=== PATIENT | female | born 1955 | race Caucasian/White ===

== ENCOUNTER 2017-05-18 10:19 | Emergency (ER) | payer BC, OTHER ==
[~2017-05-18] VITALS: Ht 160 cm; Wt 74.8 kg
[2017-05-18] MEDS ORDERED: TETANUS/DIPHTHERIA TOX ADULT 0.5 ML SYR IM ONE (10:30)
[2017-05-18] MEDS ORDERED: HYDROCODONE/APAP 7.5MG-325MG 1 EA TAB PO PRN (10:30)
--- NOTE | 2017-05-18 11:26 | Diagnostic Imaging Report ---
Left first toe - 4 views HISTORY: Pain. COMPARISON: None available. FINDINGS: Bones: Comminuted fracture of the distal tuft of the left first digit. No expansile lytic or sclerotic lesion. Joints: The joint spaces are well-maintained. No dislocation. Soft tissues: Soft tissue swelling of the left first digit. IMPRESSION: Crush injury of the distal left first digit. Signed by: Dr. Bebeto Lowery M.D. on 05/18/2017 11:23 AM
[2017-05-18] MEDS ORDERED: BACITRACIN ZINC 0.9GM TP ONE (11:30)
[2017-05-18 11:53] VITALS: BP 158/79
== END 2017-05-18 12:02 | disposition home or self-care (01) ==
LOC: ER 10:47
DX: S90.212A Contusion of left great toe with damage to nail, initial encounter (principal); W20.8XXA Other cause of strike by thrown, projected or falling object, initial encounter; Y93.G1 Activity, food preparation and clean up; Y92.000 Kitchen of unspecified non-institutional (private) residence as the place of occurrence of the external cause; I10 Essential (primary) hypertension; E11.9 Type 2 diabetes mellitus without complications
CPT/HCPCS: 90714; 99283

== ENCOUNTER 2017-12-10 16:47 | Observation (INO) | payer OTHER ==
[~2017-12-10] VITALS: Ht 160 cm; Wt 74.8 kg
[2017-12-10 17:52] LABS: BASOPHILS % 0.4 % (0.0-1.0); EOSINOPHILS # (AUTO) 0.2 (0.0-0.4); EOSINOPHILS % 2.4 % (0.0-6.0); HEMATOCRIT 37.9 % (34.2-44.1); HEMOGLOBIN 12.8 g/dL (12.0-16.0); LYMPHOCYTES % 12.6 % (18.0-39.1); MEAN CORPUSCULAR HEMOGLOBIN 30.2 pg (28-32); MEAN CORPUSCULAR HGB CONC 33.8 g/dL (31-35); MEAN CORPUSCULAR VOLUME 89.4 fL (81-99); MONOCYTES # (AUTO) 0.7 (0.2-0.8); MONOCYTES % 8.3 % (4.4-11.3); NEUTROPHILS # (AUTO) 6.3 (2.1-6.9); NEUTROPHILS % 75.9 % (38.7-80.0); PLATELET COUNT 246 x10e3/uL (140-360); RED BLOOD COUNT 4.24 x10e6/uL (3.6-5.1); RED CELL DISTRIBUTION WIDTH 12.9 % (11.7-14.4)
--- NOTE | 2017-12-10 17:52 | Diagnostic Imaging Report ---
PROCEDURE: A single AP view of the chest. COMPARISON: 08/04/2014 INDICATIONS: BRIEF MOMENT OF PARALYSIS FINDINGS: Lines/tubes: None. Lungs: The lungs are well inflated and clear. There is no evidence of pneumonia or pulmonary edema. Pleura: There is no pleural effusion or pneumothorax. Heart and mediastinum: The heart and the mediastinum are unremarkable. Bones: No acute bony abnormality. IMPRESSION: 1. No acute cardiopulmonary disease. Dictated by: Marbin Barnes M.D. on 12/10/2017 at 17:58 Electronically approved by: Marbin Barnes M.D. on 12/10/2017 at 17:58
[2017-12-10 18:02] LABS: INR 1.06
[2017-12-10 18:10] LABS: ALBUMIN 4.3 g/dL (3.5-5.0); ANION GAP 15.3 mmol/L (8-16); CALCIUM 10.1 mg/dL (8.4-10.2); CREATININE, SERUM 1.05 mg/dL (0.57-1.11); POTASSIUM 4.3 mmol/L (3.5-5.1)
--- NOTE | 2017-12-10 18:18 | Diagnostic Imaging Report ---
Head CT without contrast History: 62-year-old female with brief episode of confusion. Forgot where she was. Currently no symptoms. Comparison studies: None Technique: Axial images were obtained from the skull base to the vertex. Coronal and sagittal reconstructions obtained from the axial data. Dose modulation, iterative reconstruction, and/or weight based adjustment of the mA/kV was utilized to reduce the radiation dose to as low as reasonably achievable. Findings: Scalp/skull: No abnormalities. No fractures, blastic or lytic lesions. Extra-axial spaces: No masses. No fluid collections. Brain sulci: Mildly prominent. Ventricles: Normal in size and configuration. No hydrocephalus. Parenchyma: No abnormal densities. Hypodensity in the bailey is likely secondary to streak artifact. No masses, hemorrhage, acute or chronic cortical vascular insults. Sellar/suprasellar region: No abnormalities Craniocervical junction: Patent foramen magnum. No Chiari one malformation. Incidental: Mild atherosclerotic plaque in the carotid siphons. IMPRESSION: No acute abnormalities. Mild generalized cerebral volume loss. A preliminary report was given by Neuroradiology fellow Dr. Shultz at 6.00pm on 12/10/2017. Signed by: Dr. Nikkie Velasco M.D. on 12/10/2017 7:53 PM
[2017-12-10 18:30] LABS: CREATINE KINASE MB 1.4 ng/mL (0-5.0); THYROID STIMULATING HORMONE 1.518 uIU/mL (0.350-4.940)
[2017-12-10] MEDS ORDERED: DEXTROSE 50% SYRINGE 50 ML IV PRN (18:30)
[2017-12-10] MEDS ORDERED: CARVEDILOL6.25 MG PO (18:48)
[2017-12-10] MEDS ORDERED: AMLODIPINE BESY10 MG PO (18:48)
[2017-12-10] MEDS ORDERED: NORTRIPTYLINE H50 MG PO (18:48)
[2017-12-10] MEDS ORDERED: LOVASTATIN20 MG PO (18:48)
[2017-12-10] MEDS ORDERED: LISINOPRIL10 MG PO (18:48)
[2017-12-10] MEDS ORDERED: TOUJEO SQ (18:48)
[2017-12-10] MEDS ORDERED: METFORMIN HCL500 MG PO (18:48)
--- NOTE | 2017-12-10 19:00 | History and Physical ---
CHIEF COMPLAINT: Transient loss of memory and dizziness for 3 minutes while the patient was shopping. HISTORY OF PRESENT ILLNESS: This is a 62-year-old female with past medical history of hypertension, hyperlipidemia, atherosclerotic heart disease, diabetes mellitus. She was in her usual state of health until she went shopping at [employer] with her daughter. Daughter stated that the patient was very confused for 3 minutes with dizziness. No chest pain, but has some heartburn. No cough, no fever. No diarrhea, no constipation. No abdominal pain. No nausea or vomiting. No seizures. No leg pain. No leg swelling. No focal weakness. No drooling from mouth. No diplopia. No blurring of vision. No hematemesis. No melena. No backache. No burning on urination. PAST MEDICAL HISTORY: 1. Diabetes mellitus. 2. Hypertension. 3. Hyperlipidemia. 4. Atherosclerotic heart disease. 5. GERD. PAST SURGICAL HISTORY: Not available. SOCIAL HISTORY: The patient lives with her . The patient is . HABITS: Denied. Quit smoking many, many years ago. Denies alcohol use. Denies illicit drug use. MEDICATIONS: List attached. REVIEW OF SYSTEMS GENERAL: Denies fatigue and weakness. HEENT: No diplopia. No blurring of vision. CARDIOPULMONARY: No chest pain. No shortness of breath. No cough. ALIMENTARY SYSTEM: No nausea, no vomiting. No diarrhea and no constipation. No hematemesis. No melena. GENITOURINARY: Denies dysuria or hematuria. MUSCULOSKELETAL: No joint pains. CENTRAL NERVOUS SYSTEM: No focal weakness. PHYSICAL EXAMINATION GENERAL: A 62-year-old female, who is alert, oriented times 3 now. . VITAL SIGNS: Temperature 96, respiratory rate 18, blood pressure 146/84. HEENT: Atraumatic and normocephalic. Pupils are bilaterally equal to light. Extraocular movements are intact. NECK: Supple. No JVD, no carotid bruit. LUNGS: Clear to auscultation and percussion bilaterally. HEART: S1 and S2. Regular rate and rhythm. No S3, S4 or murmur. ABDOMEN: Soft, nontender. No guarding, no rigidity. EXTREMITIES: No edema. Peripheral pulses +1. ROTARY RIG ENGINE OPERATOR: Grossly nonfocal. CT of the head negative. Chest x-ray normal. EKG normal sinus rhythm at 96 per minute. BMP pending. CBC normal. PT and PTT normal. ASSESSMENT: 1. Possible transient ischemic attack or cerebrovascular accident. 2. Atherosclerotic heart disease. 3. Diabetes mellitus. 4. Hypertension. 5. Hyperlipidemia. 6. History of gastroesophageal reflux disease. PLAN: Aspirin 81 mg p.o. daily. Neuro consult with Dr. Stein. Cardiology consult with Dr. Chun. Discussed with the patient and family her condition and prognosis. Carotid Doppler and echo. MRI of brain deferred to neurologist. Will do lab in the morning, fasting lipid panel, hemoglobin A1c. Job#: [id number]
[2017-12-10 19:10] LABS: BILIRUBIN,URINE NEGATIVE (NEGATIVE); CLARITY,URINE CLOUDY (CLEAR); COLOR,URINE YELLOW (YELLOW); KETONES,URINE NEGATIVE (NEGATIVE); LEUKOCYTE ESTERASE ,URINE 2+ (NEGATIVE); NITRITE,URINE NEGATIVE (NEGATIVE); PROTEIN,URINE DIPSTICK TRACE (NEGATIVE); URINE UROBILINOGEN 0.2 mg/dL (0.2 - 1)
[2017-12-10 19:13] LABS: AMPHETAMINES SCREEN,URINE NEGATIVE (NEGATIVE); BENZODIAZEPINES SCREEN,URINE NEGATIVE (NEGATIVE); PHENCYCLIDINE SCREEN,URINE NEGATIVE (NEGATIVE)
[2017-12-10 19:18] LABS: BACTERIA,URINE MANY /HPF; RBC,URINE 0-5 /HPF (0-5)
[2017-12-10] MEDS: CEFTRIAXONE SOD 1 GM VIAL IV SCH (20:06)
[2017-12-10 20:30] VITALS: BP 174/80
[2017-12-10 20:55] VITALS: BP 174/80
[2017-12-10] MEDS: INSULIN LISPRO 100 UNIT/1 ML 3ML VIAL SQ SCH (20:55)
[2017-12-10] MEDS ORDERED: NON-FORMULARY MEDICATION (Nortriptyline Hcl 50 MG) PO SCH (21:45)
[2017-12-10] MEDS: NORTRIPTYLINE HCL 25 MG CAP PO SCH (21:57)
[2017-12-11] VITALS (8 sets, daily range): BP systolic 114–151; BP diastolic 53–76
[2017-12-11 06:24] LABS: ALANINE AMINOTRANSFERASE 19 IU/L (0-55); ALBUMIN 3.7 g/dL (3.5-5.0); ALKALINE PHOSPHATASE 103 IU/L (40-150); ANION GAP 15.4 mmol/L (8-16); BLOOD UREA NITROGEN 13 mg/dL (7-26); BUN/CREATININE RATIO 15 (6-25); CALCIUM 9.4 mg/dL (8.4-10.2); CARBON DIOXIDE 25 mmol/L (22-29); CHLORIDE 106 mmol/L (98-107); CHOL/HDL RATIO 3.4 (3.0-3.6); CHOLESTEROL 140 MD/DL (0-199); CREATININE, SERUM 0.86 mg/dL (0.57-1.11); EST GLOMERULAR FILTRATION RATE > 60 ML/MIN (60-); GLUCOSE 126 mg/dL (74-118); HDL CHOLESTEROL 41 MG/DL (40-60); LDL CHOLESTEROL 75 MG/DL (60-130); POTASSIUM 4.4 mmol/L (3.5-5.1); SODIUM 142 mmol/L (136-145); TRIGLYCERIDES 121 MG/DL (0-149)
[2017-12-11 06:46] LABS: FREE T4 (FREE THYROXINE) 1.02 ng/dL (0.9-1.8)
[2017-12-11] MEDS: PANTOPRAZOLE SOD 40 MG TABEC PO SCH (07:30)
[2017-12-11] MEDS: INSULIN LISPRO 100 UNIT/1 ML 3ML VIAL SQ SCH ×4 (07:30→20:34)
[2017-12-11] MEDS: METFORMIN HCL 500 MG TAB PO SCH ×2 (08:00→17:26)
[2017-12-11] MEDS ORDERED: ASPIRIN 325 MG TAB PO SCH (09:00)
[2017-12-11] MEDS ORDERED: NON-FORMULARY MEDICATION (Lovastatin 20 MG) PO SCH (09:00)
[2017-12-11] MEDS: ASPIRIN 81 MG CHEW TAB PO SCH (09:00)
--- NOTE | 2017-12-11 09:07 | Consultation ---
DATE OF CONSULTATION: December 10, 2017 CONSULTING PHYSICIAN: Dr. Jayden Dean REASON FOR CONSULTATION: TIA. HPI: This is a pleasant 62-year-old female that presented with altered mental status. According to the family and medical record, she was in the store at [facility] very confused and did not know where she was. She also stated it has been going on off and on, and the daughter brought her in for evaluation. She denied any chest pain, any palpitation, any fall, any dizziness or shortness of breath. PAST MEDICAL HISTORY: Hypertension, diabetes, hyperlipidemia, and diabetic neuropathy. PAST SURGICAL HISTORY: Cholecystectomy, tubal ligation, and tonsillectomy. FAMILY HISTORY: Positive for CAD. SOCIAL HISTORY: No smoking. No drinking. She lives at home with her . MEDICATIONS: See med list. ALLERGIES: SHE IS ALLERGIC TO IODINE AND MEPERIDINE. REVIEW OF THE SYSTEMS: Negative except those mentioned above. PHYSICAL EXAMINATION: VITAL SIGNS: Temperature 97, heart rate 93, blood pressure 118/53, respiration 18, oxygen saturation 95% on room air. GENERAL: She is awake, alert, and oriented x3. HEENT: Mucous membranes moist. NECK: Supple. LUNGS: Bilaterally clear to auscultation. CARDIOVASCULAR: S1 and S2 present. ABDOMEN: Soft. NEUROLOGICAL: Intact. She is alert and oriented x3. EXTREMITIES: Bilateral lower with no edema, but with discoloration. LABS: Sodium 142, potassium 4.4, chloride 106, CO2 25, BUN 13, creatinine 0.86, glucose 126. White blood cell 8.24, hemoglobin 12.8, hematocrit 37.9, platelet 246,000. PT 13.0, PTT 28.0, INR 1.06. IMPRESSION: 1. Altered mental status. 2. Hypertension. 3. Diabetes. 4. Hyperlipidemia. 5. Possible transient ischemic attack. 6. History of diabetic neuropathy. ASSESSMENT AND PLAN: 1. She is pending echocardiogram to assess the LV and the valve function. 2. Will go ahead and get bilateral carotid Doppler to rule out any occlusion. 3. Will check UA to rule out UTI. 4. She complained of numbness and no feeling to bilateral lower extremities, so will go ahead and get a bilateral arterial Doppler to rule out any occlusion. Will continue her home medications. Neurology is on board. Further cardiac workup pending clinical course. Thank you for this consultation. Dictated by: Kylie Meza NP Job#: [id number]
--- NOTE | 2017-12-11 13:34 | Diagnostic Imaging Report ---
EXAMINATION: MRI of the brain without contrast. HISTORY: Confusion, transit ischemic attack COMPARISON: Head CT on 12/10/2017 TECHNIQUE: Sagittal T2; axial DWI, T2, FLAIR, T1-IR, T2 gradient echo; coronal FLAIR. IMAGE QUALITY: Adequate. FINDINGS: Parenchyma: 1. A few scattered white matter T2 hyperintense foci, most likely nonspecific chronic microvascular ischemic changes. 2. No mass, hemorrhage, acute or chronic infarcts. Skull: Unremarkable. Vessels: Expected flow voids present in the major arteries and dural sinuses. Extra-axial spaces: No abnormal signal intensity or mass effect. Brain volume: Within normal limits for age. Ventricles: No hydrocephalus or displacement. Foramen magnum: Unremarkable. Sella: Unremarkable. Paranasal / mastoid sinuses: No significant inflammatory disease. IMPRESSION: 1. No acute infarcts. 2. Minimal chronic microvascular ischemic changes. Signed by: Dr. Miriam Bhardwaj M.D. on 12/11/2017 1:31 PM
[2017-12-11 15:41] LABS: CLARITY,URINE SL CLOUDY (CLEAR); COLOR,URINE YELLOW (YELLOW); LEUKOCYTE ESTERASE ,URINE TRACE (NEGATIVE); NITRITE,URINE NEGATIVE (NEGATIVE); PROTEIN,URINE DIPSTICK NEGATIVE (NEGATIVE)
[2017-12-11 15:42] LABS: BILIRUBIN,URINE NEGATIVE (NEGATIVE); KETONES,URINE NEGATIVE (NEGATIVE); URINE UROBILINOGEN 0.2 mg/dL (0.2 - 1)
[2017-12-11 15:52] LABS: BACTERIA,URINE MODERATE /HPF; EPITHELIAL CELLS,URINE FEW /LPF; RBC,URINE 0-5 /HPF (0-5); WBC,URINE (MAN) 21-50 /HPF (0-5)
[2017-12-11] MEDS: CEFTRIAXONE SOD 1 GM VIAL IV SCH (20:34)
[2017-12-11] MEDS: NORTRIPTYLINE HCL 25 MG CAP PO SCH (20:34)
[2017-12-11] MEDS ORDERED: SIMVASTATIN 20 MG TAB PO SCH (21:00)
[2017-12-12] VITALS: BP 125/59
--- NOTE | 2017-12-12 01:33 | Consultation ---
DATE OF CONSULTATION: December 11, 2017 NEUROLOGY CONSULT NOTE HISTORY OF PRESENT ILLNESS: Ms. Sylvester is a 62-year-old right hand dominant woman with past medical history significant for hypertension, hyperlipidemia, and diabetes mellitus type 2 complicated by peripheral neuropathy, admitted to [facility] on December 10, 2017, for symptoms suspicious for a transient ischemic attack. On the afternoon of admission, the patient was sitting in her car with her daughter, having recently exited [employer]. While in the car, the patient turned to her daughter and asked her, "where is [employer]?" Her daughter pointed over her shoulder, indicating the store behind them. Ms. Sylvester acknowledged her daughter's response, started the car, and drove away. This very brief episode of forgetfulness is the only symptom experienced by the patient. Ms. Sylvester did not report a visual field cut or other disturbance, dysarthria, aphasia, facial droop, hemiparesis, and hemihypesthesia, impairment of gait or balance, or dizziness. The patient does not report a headache associated with the above symptom. Ms. Sylvester proceeded to the emergency center at [facility] on the evening of December 10, 2017, at the encouragement of her children for further evaluation of her symptom. In the emergency center, the patient's neurological examination was nonfocal. A CT of the brain without contrast was performed, but did not show evidence of recent large territorial ischemia, hemorrhage, mass, or mass effect. Ms. Sylvester was admitted to the hospital under observation status for further evaluation and treatment. Ms. Sylvester does not report experiencing similar symptoms previously. REVIEW OF SYSTEMS: Confusion, numbness and tingling of the feet (chronic). Otherwise, a 12-point review of systems is negative. PAST MEDICAL HISTORY: Hypertension, hyperlipidemia, diabetes mellitus type 2, depression, and diabetic peripheral neuropathy. PAST SURGICAL HISTORY: Removal of a fallopian tube, tonsillectomy, cholecystectomy, oophorectomy, and nose surgery. PAST HOSPITALIZATIONS: Surgeries/procedures as listed, childbirth times 2. FAMILY MEDICAL HISTORY: The patient's paternal and maternal grandparents are . The medical histories of the paternal grandparents and maternal grandfather are unknown. Ms. Sylvester' maternal grandmother from coronary artery disease with a myocardial infarction. The patient's father is from lung cancer. Her mother is from coronary artery disease with a myocardial infarction. Ms. Sylvester had 4 siblings, 2 sisters and 2 brothers. One sister is alive and healthy. A second sister is alive, but has a history of a prior stroke. One brother is alive, but his medical history is unknown. The second brother is from coronary artery disease with a myocardial infarction. Ms. Sylvester has 2 children, a son and a daughter, both of whom are living. Her son reportedly has tachycardia of an unknown etiology. Her daughter has Crohn's disease. SOCIAL HISTORY: Ms. Sylvester is . She is a housewife. The patient does report a remote history of tobacco use, but quit smoking cigarettes 34 years ago. The patient does not report current or prior alcohol or recreational drug use. HOME MEDICATIONS: Please see the list available on the electronic medical record. ALLERGIES: DEMEROL. NO KNOWN FOOD ALLERGIES. NO KNOWN ALLERGIES TO LATEX. THE PATIENT DOES REPORT AN ALLERGY TO IODINE. PHYSICAL EXAMINATION VITAL SIGNS: Height 63 inches, weight 165 pounds, BMI 29.2 kg per meter squared. Blood pressure 114/58 mmHg, pulse 94 beats per minute, respiratory rate 18 breaths per minute, and oxygen saturation 95% on room air. GENERAL: The patient is awake and alert, does not appear distressed. Overweight. HEENT: Normocephalic, atraumatic. Pupils are equal, round, and reactive to light. NECK: Supple. No appreciable thyromegaly. No appreciable carotid bruits. CARDIOVASCULAR: S1 and S2, regular rate and rhythm. No murmurs, rubs, or gallops. RESPIRATORY: Clear to auscultation bilaterally. No wheezes, rhonchi, or rales. EXTREMITIES: The skin is warm and dry. No clubbing, cyanosis, or edema. The posterior tibial and dorsalis pedis pulses are 1+ and symmetric. SKIN: Thinning and hyperpigmentation of the skin over the feet and distal forelegs. NEUROLOGIC Memory/Attention: The patient is awake and alert, oriented to person, place, time, and situation. Cranial Nerves: Cranial nerve I: Not tested. Cranial nerve II, III, IV, and V: Pupils are equal and round, react briskly to light (from 4 mm to 2 mm). Extraocular movements intact. No nystagmus. Cranial nerve V: Sensation to light touch and pinprick is intact in the bilateral V1 through V3 distributions. Strength of the temporalis and masseter muscles is within normal limits. Cranial nerve VII: The face is symmetric as are all facial movements. Strength is within normal limits. Cranial nerve VIII: Hearing is intact to finger rub bilaterally. Cranial nerve IX, X: The soft palate elevates equally and symmetrically. Cranial nerve XI: Normal strength of the bilateral sternocleidomastoid and trapezius muscles. Cranial nerve XII: The tongue protrudes in midline and moves symmetrically from side to side. Strength: Bulk is normal. Strength is 5/5 in the bilateral deltoids, biceps, triceps, wrist flexors and extensors, finger flexors and extensors, intrinsic hand muscles, hip flexors, knee flexors and extensors, ankle dorsiflexion and plantar flexion, and intrinsic foot muscles. Tone is normal. DTRs: Deep tendon reflexes are 2+ and symmetric at the triceps, biceps, and brachioradialis. Deep tendon reflexes are 1+ and symmetric at patellae. Deep tendon reflexes are absent and symmetric at the Achilles. Plantar responses are flexor bilaterally. Sensation: Sensation is diminished to light touch and pinprick in a stocking distribution. Cerebellar: Szcfnl-amyd-hwnnik and heel-cain movements are intact without dysmetria or other impairment. Gait: Gait deferred. Speech: Spontaneous speech is normal without appreciable dysarthria or aphasia. Repetition is intact. Involuntary Movements: None. Pronator Drift: None. LABORATORY DATA: The patient's complete metabolic panel is unremarkable with the exception of an elevated serum glucose of 126. Total cholesterol 140, triglycerides 121, LDL cholesterol 75, HDL cholesterol 41. Hemoglobin A1c 6.9. TSH 1.800, free T4 of 1.02. The CBC with differential and platelets is unremarkable. Erythrocyte sedimentation rate is mildly elevated at 56. The PT, INR, and PTT are within normal limits. A urinalysis collected on December 11, 2017, reveals 2+ glucose, trace blood, trace leukocyte esterase, 21 to 50 white blood cells, and moderate urine bacteria. A urine culture grew gram-negative bacilli. A urine drug screen was negative. DIAGNOSTIC STUDIES: Electrocardiogram December 10, 2017: Normal sinus rhythm at 96 beats per minute. Chest x-ray, December 10, 2017: No acute cardiopulmonary disease. CT of the brain without contrast, December 10, 2017: On my review, there is no evidence of recent large territorial ischemia, hemorrhage, mass, or mass effect. There is mild diffuse cerebral atrophy, appropriate for age. There are findings compatible with mild chronic small vessel ischemic disease. MRI of the brain without contrast, December 11, 2017: On my review, there is no evidence of recent large territorial ischemia, hemorrhage, mass, or mass effect. Cerebral volume is appropriate for age. There are scattered nonspecific T2/flair hyperintense foci of the supratentorial deep white matter compatible with chronic small vessel ischemic disease. Echocardiogram, December 11: Ejection fraction 60% to 65%. Trace mitral and tricuspid regurgitation. Bilateral carotid artery ultrasound with Doppler, December 11, 2017: There is atherosclerosis without hemodynamically significant stenosis at the bilateral carotid bulbs and bifurcations. Flow is antegrade in the bilateral vertebral arteries. ASSESSMENT AND PLAN: Ms. Sylvester is a 62-year-old right hand dominant woman with past medical history significant for hypertension, hyperlipidemia, and diabetes mellitus type 2, admitted to [facility] with momentary forgetfulness as detailed in the history of present illness. At present, her neurological examination is nonfocal. The patient's laboratory data and other diagnostic studies have been reviewed and are documented above. In my opinion, the patient did not experience a transient ischemic attack nor is the very brief period of forgetfulness experienced on December 10, 2017, indicative of an underlying neurological disorder. There are no recommendations from the neurology service. The patient may be discharged to home. Thank you for this consultation. Time spent: 70 minutes. Job#: [id number]
[2017-12-12 04:50] VITALS: BP 122/61
[2017-12-12] MEDS ORDERED: MACROBID 100 M100 MG PO (08:09)
[2017-12-12 08:16] VITALS: BP 126/58
[2017-12-12] MEDS: PANTOPRAZOLE SOD 40 MG TABEC PO SCH (08:30)
[2017-12-12] MEDS: INSULIN LISPRO 100 UNIT/1 ML 3ML VIAL SQ SCH (08:30)
[2017-12-12] MEDS: METFORMIN HCL 500 MG TAB PO SCH (09:00)
[2017-12-12] MEDS: ASPIRIN 81 MG CHEW TAB PO SCH (09:00)
[2017-12-12 09:16] VITALS: BP 126/58
== END 2017-12-12 09:52 | disposition home or self-care (01) ==
LOC: ER 16:47 → ERHOLD 20:10 → MED/SURG 20:26
PROVIDERS: ADMIT Internal Medicine; ATTEND Internal Medicine
DX: N39.0 Urinary tract infection, site not specified (principal); R42 Dizziness and giddiness; R41.82 Altered mental status, unspecified; I25.10 Atherosclerotic heart disease of native coronary artery without angina pectoris; I10 Essential (primary) hypertension; E78.5 Hyperlipidemia, unspecified; K21.9 Gastro-esophageal reflux disease without esophagitis; R41.3 Other amnesia; E11.42 Type 2 diabetes mellitus with diabetic polyneuropathy
CPT/HCPCS: 36415 ×3; 70450; 70551; 71045; 80053 ×2; 80061; 80307; 81001 ×2; 82550; 82553; 82948 ×3; 83036; 84439; 84443 ×2; 84484; 85025; 85610; 85651; 85730; 86039; 87086; 87186; 93005; 93306; 93880; 93925; 96372; 99284; G0378 ×3; J0696 ×2; S0164

== ENCOUNTER → 2024-11-03 | Day surgery (SDC) | payer MEDICARE, OTHER ==
[2024-10-28 10:19] LABS: BASOPHILS % 0.4 % (0.0-1.0); EOSINOPHILS % 3.2 % (0.0-6.0); LYMPHOCYTES % 19.6 % (18.0-39.1); MONOCYTES % 7.6 % (4.4-11.3); NEUTROPHILS % 69.0 % (38.7-80.0); RED CELL DISTRIBUTION WIDTH 12.7 % (11.7-14.4)
[~2024-11-03] MED LIST: AMLODIPINE BESY10 MG PO; ASPIRIN81 MG PO; CARVEDILOL6.25 MG PO; FENTANYL CITRATE/PF 100MCG/2 ML INJ ONE; LACTATED RINGER'S 1,000 ML ONE; LISINOPRIL10 MG PO; LOVASTATIN20 MG PO; MACROBID 100 M100 MG PO; METFORMIN HCL500 MG PO; MULTI-VITAMIN1 EACH PO; NORTRIPTYLINE H50 MG PO; NOVOLIN N100 UNIT/1 SQ; PROPOFOL IV EMULSION 10 MG/ML 20 ML VIAL ONE; TOUJEO SQ
[2024-11-03 14:43] VITALS: TEMP 98.4
[2024-11-03 15:25] VITALS: BP 136/65; PULSE 74; RESP 15; O2SAT 98
== END | disposition home or self-care (01) ==
LOC: OR 11:05
PROVIDERS: ATTEND Internal Medicine Gastroenterology
DX: Z09 Encounter for follow-up examination after completed treatment for conditions other than malignant neoplasm (principal); K63.5 Polyp of colon; K62.1 Rectal polyp; K57.30 Diverticulosis of large intestine without perforation or abscess without bleeding; K64.8 Other hemorrhoids; I10 Essential (primary) hypertension; E78.00 Pure hypercholesterolemia, unspecified; E11.40 Type 2 diabetes mellitus with diabetic neuropathy, unspecified; Z79.4 Long term (current) use of insulin; Z79.84 Long term (current) use of oral hypoglycemic drugs; R19.5 Other fecal abnormalities; K59.00 Constipation, unspecified; R19.7 Diarrhea, unspecified; R14.0 Abdominal distension (gaseous); Z71.3 Dietary counseling and surveillance; Z68.28 Body mass index [BMI] 28.0-28.9, adult; F41.9 Anxiety disorder, unspecified; R94.31 Abnormal electrocardiogram [ECG] [EKG]; Z01.810 Encounter for preprocedural cardiovascular examination; Z01.812 Encounter for preprocedural laboratory examination; Z87.440 Personal history of urinary (tract) infections; Z79.899 Other long term (current) drug therapy; Z79.82 Long term (current) use of aspirin
CPT/HCPCS: 36415 ×2; 45380; 45385; 82948; 85025; 93005; J2704; J3010; J7121; 45378